=== PATIENT | female | born 1945 | race Caucasian/White ===

== ENCOUNTER 2017-01-20 21:25 | Emergency (ER) | payer MEDICARE, MEDICAID ==
[~2017-01-20] VITALS: Ht 152.4 cm; Wt 47.6 kg
[~2017-01-20 21:25] MED LIST: ASPI-498 PO; BENA40TA PO; GLIP10TA82 PO; HYDR12.56 PO; HYDR7.5T PO; METF-370 PO; NORVASC PO; OMEP20CA74 PO; SIMV20TA90 PO; ZOLP-158 PO
[2017-01-20 21:47] VITALS: BP 125/72
[2017-01-20 22:17] LABS: Basophils # (auto) 0 uL; Basophils % (auto) 0.3 % (0.0-2.0); CONDITION Y; Eosinophils # (auto) 0.1 uL; Eosinophils % (auto) 1.3 % (0.0-7.0); Hematocrit 36.6 % (36.0-46.0); Hemoglobin 12.3 g/dL (12.2-16.2); Lymphocytes # (auto) 1.7 uL; Lymphocytes % (auto) 19.2 % (10.0-50.0); Mean Corpuscular Hgb Conc. 33.5 g/dL (32.0-36.0); Mean Corpuscular Volume 89.3 fL (80.0-100.0); Mean Platelet Volume 8.9 fL (7.4-10.4); Monocytes # (auto) 0.6 uL; Monocytes % (auto) 6.5 % (0.0-12.0); Neutrophils # (auto) 6.5 uL; Neutrophils % (auto) 72.7 % (37.0-80.0); Platelet Count (auto) 260 10^3/uL (140-450); Red Cell Distribution Width 13.8 % (11.6-16.0); White Blood Cell 8.9 10^3/uL (4.4-10.8)
[2017-01-20 22:33] LABS: Partial Thromboplastin Time 29.2 sec (22.64-33.71); Prothrombin Time 10.9 sec (9.37-12.3)
[2017-01-20 22:46] LABS: Albumin 3.8 g/dL (3.4-5.0); Alkaline Phosphatase 61 U/L (45-117); Amylase 40 U/L (25-115); Anion Gap 11 (5-15); Aspartate Aminotransferase 14 U/L (15-37); BUN/Creatinine Ratio 19.2; Bilirubin, Total 0.4 mg/dL (0.2-1.0); Blood Urea Nitrogen 10 mg/dL (7-18); Calcium 8.9 mg/dL (8.5-10.1); Carbon Dioxide 28 mmol/L (21-32); Chloride 96 mmol/L (98-107); GFR African American 149 mL/min; GFR Non-African American 123 mL/min; Glucose 144 mg/dL (74-106); Magnesium 1.9 mg/dL (1.6-2.6); Potassium 3.1 mmol/L (3.5-5.1); Sodium 135 mmol/L (136-145); Total Protein 7.4 g/dL (6.4-8.2)
== END 2017-01-21 02:47 | disposition left against medical advice (07) ==
LOC: ER 21:28
DX: R10.13 Epigastric pain (principal); R11.2 Nausea with vomiting, unspecified; Z53.21 Procedure and treatment not carried out due to patient leaving prior to being seen by health care provider
CPT/HCPCS: 36415; 71010; 80053; 82150; 83690; 83735; 84484; 85025; 85610; 85730

== ENCOUNTER 2017-12-03 09:08 | Emergency (ER) | payer MEDICARE, MEDICAID ==
[~2017-12-03] VITALS: Ht 152.4 cm; Wt 46.7 kg
[2017-12-03 09:55] LABS: Basophils # (auto) 0 uL; Basophils % (auto) 0.7 % (0.0-2.0); Eosinophils # (auto) 0.1 uL; Eosinophils % (auto) 1.6 % (0.0-7.0); Hematocrit 39.4 % (36.0-46.0); Lymphocytes # (auto) 1.1 uL; Lymphocytes % (auto) 22.4 % (10.0-50.0); Mean Corpuscular Hemoglobin 29.8 pg (28.0-32.0); Mean Corpuscular Hgb Conc. 32.9 g/dL (32.0-36.0); Mean Corpuscular Volume 90.6 fL (80.0-100.0); Monocytes # (auto) 0.4 uL; Monocytes % (auto) 7.7 % (0.0-12.0); Neutrophils # (auto) 3.4 uL; Neutrophils % (auto) 67.6 % (37.0-80.0); Nucleated Red Blood Cells % 0.1 %; Platelet Count (auto) 278 10^3/uL (140-450); Red Blood Cells 4.36 10^6/uL (4.0-5.20)
[2017-12-03 10:01] LABS: Urine Bacteria NONE SEEN /hpf (None Seen); Urine Blood Negative /uL (Negative); Urine Specific Gravity 1.003 (1.001-1.035); Urine WBC <1 /hpf (0 - 5)
[2017-12-03 10:11] LABS: Albumin 4.1 g/dL (3.4-5.0); Calcium 9.1 mg/dL (8.5-10.1); Potassium 3.5 mmol/L (3.5-5.1)
[2017-12-03 10:14] LABS: Bilirubin, Total 0.4 mg/dL (0.2-1.0); Total Protein 8.1 g/dL (6.4-8.2)
[2017-12-03 12:37] VITALS: BP 151/68
[2017-12-03] MEDS ORDERED: ALUM & MAG HYDROX-SIMETH LIQ(MAALOX) 30 ML PO ONE (13:00)
[2017-12-03] MEDS ORDERED: DONNATAL 5ml ORAL Elix (BELLADONNA ALK-PHENOBARB) PO ONE (13:00)
[2017-12-03] MEDS ORDERED: LIDOCAINE VISCOUS 2% 15ML UD PO ONE (13:00)
[2017-12-03] MEDS ORDERED: SODIUM CHLORIDE 0.9% 500 ML IV ONE (13:30)
== END 2017-12-03 15:10 | disposition home or self-care (01) ==
LOC: ER 09:10
DX: R19.7 Diarrhea, unspecified (principal); I10 Essential (primary) hypertension; E11.9 Type 2 diabetes mellitus without complications; Z79.82 Long term (current) use of aspirin; Z79.84 Long term (current) use of oral hypoglycemic drugs; Z79.899 Other long term (current) drug therapy
CPT/HCPCS: 36415; 71046; 74176; 80053; 81001; 85025; 93005; 96360

== ENCOUNTER 2019-05-13 21:49 | Emergency (ER) | payer MEDICARE, MEDICAID ==
[~2019-05-13] VITALS: Ht 152.4 cm; Wt 47.6 kg
[~2019-05-13 21:49] MED LIST changes: +GLIP10TA3 PO; -GLIP10TA82 PO
[2019-05-13 22:38] LABS: Basophils # (auto) 0 uL; Basophils % (auto) 0.6 % (0.0-2.0); Eosinophils # (auto) 0.1 uL; Eosinophils % (auto) 1.1 % (0.0-7.0); Hematocrit 36.8 % (36.0-46.0); Hemoglobin 12.2 g/dL (12.2-16.2); Lymphocytes # (auto) 2.1 uL; Lymphocytes % (auto) 24.4 % (10.0-50.0); Mean Corpuscular Hemoglobin 29.5 pg (28.0-32.0); Mean Corpuscular Hgb Conc. 33.2 g/dL (32.0-36.0); Monocytes # (auto) 0.7 uL; Monocytes % (auto) 8.7 % (0.0-12.0); Neutrophils # (auto) 5.6 uL; Neutrophils % (auto) 65.2 % (37.0-80.0); Nucleated Red Blood Cells % 0.1 %; Platelet Count (auto) 330 10^3/uL (140-450); Red Blood Cells 4.14 10^6/uL (4.0-5.20); Red Cell Distribution Width 13.7 % (11.8-14.3); White Blood Cell 8.6 10^3/uL (4.4-10.8)
[2019-05-13 22:48] LABS: Albumin 4.2 g/dL (3.4-5.0); Anion Gap 8 (5-15); Blood Urea Nitrogen 11 mg/dL (7-18); Calcium 8.9 mg/dL (8.5-10.1); Carbon Dioxide 27 mmol/L (21-32); Chloride 99 mmol/L (98-107); Glucose 138 mg/dL (74-106); Potassium 3.6 mmol/L (3.5-5.1); Sodium 134 mmol/L (136-145)
[2019-05-13 22:55] LABS: Alanine Aminotransferase 19 U/L (13-56); Alkaline Phosphatase 77 U/L (45-117); Aspartate Aminotransferase 15 U/L (15-37); BUN/Creatinine Ratio 19.6; Bilirubin, Total 0.3 mg/dL (0.2-1.0); GFR African American 135 mL/min; GFR Non-African American 112 mL/min; Total Protein 7.9 g/dL (6.4-8.2)
[2019-05-13] MEDS ORDERED: ONDANSETRON HCL 4 MG/2 ML VIAL IV ONE (23:15)
[2019-05-13] MEDS ORDERED: MORPHINE SULFATE 4 MG/ML SYR/VIAL IV ONE (23:15)
[2019-05-14 02:02] LABS: Urine WBC None Seen /hpf (0 - 5)
[2019-05-14 02:30] LABS: Urine Bacteria NONE SEEN /hpf (None Seen); Urine Blood Negative /uL (Negative); Urine Mucus FEW (None Seen); Urine Specific Gravity 1.003 (1.001-1.035)
[2019-05-14] MEDS ORDERED: ASPirin 81 mg TAB PO ONE ×2 (02:30)
[2019-05-14] MEDS ORDERED: ACETAMINOPHEN 325 MG TAB PO ONE (02:30)
[2019-05-14] MEDS ORDERED: CLOPIDOGREL 300 MG TAB PO ONE (02:30)
[2019-05-14 04:00] LABS: Basophils # (auto) 0.1 uL; Basophils % (auto) 0.7 % (0.0-2.0); Eosinophils # (auto) 0.2 uL; Eosinophils % (auto) 2.2 % (0.0-7.0); Hematocrit 36.3 % (36.0-46.0); Lymphocytes # (auto) 2.4 uL; Lymphocytes % (auto) 31.8 % (10.0-50.0); Mean Corpuscular Hemoglobin 29.6 pg (28.0-32.0); Mean Corpuscular Hgb Conc. 33.1 g/dL (32.0-36.0); Mean Corpuscular Volume 89.4 fL (80.0-100.0); Monocytes # (auto) 0.7 uL; Monocytes % (auto) 9.2 % (0.0-12.0); Neutrophils # (auto) 4.2 uL; Neutrophils % (auto) 56.1 % (37.0-80.0); Nucleated Red Blood Cells % 0.1 %; Platelet Count (auto) 311 10^3/uL (140-450); Red Blood Cells 4.06 10^6/uL (4.0-5.20); White Blood Cell 7.4 10^3/uL (4.4-10.8)
[2019-05-14 04:21] LABS: INR 1.03 (0.9-1.15); Partial Thromboplastin Time 29.2 sec (23.64-32.05)
[2019-05-14] MEDS ORDERED: IOHEXOL 350 MG/ML 100ML IJ ONE (04:50)
[2019-05-14 06:47] VITALS: BP 110/56
[2019-05-14] MEDS ORDERED: HYDROcodone-ACET 5/325MG TAB PO ONE ×2 (07:45)
[2019-05-14] MEDS ORDERED: NITROGLYCERIN 0.4 MG SL TAB SL ONE (10:00)
== END 2019-05-14 08:38 | disposition home or self-care (01) ==
LOC: ER 21:51
DX: K21.9 Gastro-esophageal reflux disease without esophagitis (principal); K44.9 Diaphragmatic hernia without obstruction or gangrene; R51 Headache; E11.9 Type 2 diabetes mellitus without complications; I10 Essential (primary) hypertension; Z79.899 Other long term (current) drug therapy; Z79.82 Long term (current) use of aspirin
CPT/HCPCS: 36415; 70450; 71045; 71275; 80053; 81001; 82962; 83735; 83880; 84443; 84484; 85025; 85379; 85610; 85730; 93005; 96374; 96375; 99284; J2270; J2405; Q9967

== ENCOUNTER → 2019-09-30 | Outpatient (CLI) | payer MEDICARE, MEDICAID ==
[~2019-09-30] VITALS: Ht 152.4 cm; Wt 47.6 kg
[~2019-09-30] MED LIST changes: +ENAL20TA8 PO; +HYDR-4296 PO; +HYDR-531 PO; +HYDR25TA4 PO; +POTA1TAB61 PO; +SITA100T7 PO
[2019-09-30 11:56] LABS: Basophils # (auto) 0 10 ^3/uL (0-0.2); Basophils % (auto) 0.7 % (0.0-2.0); Eosinophils # (auto) 0.1 10 ^3/uL (0-0.8); Hematocrit 36.1 % (36.0-46.0); Hemoglobin 11.9 g/dL (12.2-16.2); Lymphocytes # (auto) 1.1 10 ^3/uL (0.4-5.4); Lymphocytes % (auto) 17.2 % (10.0-50.0); Mean Corpuscular Hemoglobin 28.9 pg (28.0-32.0); Mean Corpuscular Hgb Conc. 33.1 g/dL (32.0-36.0); Mean Corpuscular Volume 87.3 fL (80.0-100.0); Monocytes # (auto) 0.4 10 ^3/uL (0-1.3); Monocytes % (auto) 6.2 % (0.0-12.0); Neutrophils # (auto) 4.8 10 ^3/uL (1.6-8.6); Neutrophils % (auto) 73.9 % (37.0-80.0); Nucleated Red Blood Cells % 0.1 %; Platelet Count (auto) 329 10^3/uL (140-450); Red Blood Cells 4.14 10^6/uL (4.0-5.20); Red Cell Distribution Width 14.8 % (11.8-14.3); White Blood Cell 6.6 10^3/uL (4.4-10.8)
[2019-09-30 12:14] LABS: Urine Bacteria NONE SEEN /hpf (None Seen); Urine Blood Negative /uL (Negative); Urine Specific Gravity 1.011 (1.001-1.035); Urine WBC 1 /hpf (0 - 5)
[2019-09-30 12:16] LABS: INR 1.06 (0.9-1.15); Partial Thromboplastin Time 27.8 sec (23.64-32.05)
[2019-09-30 12:26] LABS: Albumin 3.8 g/dL (3.4-5.0); Calcium 9.6 mg/dL (8.5-10.1); Potassium 3.6 mmol/L (3.5-5.1)
[2019-09-30 12:30] LABS: Bilirubin, Total 0.3 mg/dL (0.2-1.0)
== END | disposition home or self-care (01) ==
LOC: SUR 11:31 → EDSTATUS 10-05 09:15
PROVIDERS: ATTEND Podiatrist Foot & Ankle Surgery
DX: M20.41 Other hammer toe(s) (acquired), right foot (principal); Z98.890 Other specified postprocedural states
CPT/HCPCS: 36415; 80053; 81001; 85025; 85610; 85730

== ENCOUNTER 2019-12-21 05:41 | Day surgery (SDC) | payer MEDICARE, MEDICAID ==
[2019-12-20 11:31] LABS: Basophils # (auto) 0 10 ^3/uL (0-0.2); Basophils % (auto) 0.7 % (0.0-2.0); Eosinophils # (auto) 0.1 10 ^3/uL (0-0.8); Eosinophils % (auto) 2.6 % (0.0-7.0); Hematocrit 36.6 % (36.0-46.0); Hemoglobin 11.8 g/dL (12.2-16.2); Lymphocytes # (auto) 1.3 10 ^3/uL (0.4-5.4); Lymphocytes % (auto) 26.4 % (10.0-50.0); Mean Corpuscular Hemoglobin 28.2 pg (28.0-32.0); Mean Corpuscular Hgb Conc. 32.2 g/dL (32.0-36.0); Mean Corpuscular Volume 87.5 fL (80.0-100.0); Monocytes # (auto) 0.3 10 ^3/uL (0-1.3); Monocytes % (auto) 6.8 % (0.0-12.0); Neutrophils % (auto) 63.5 % (37.0-80.0); Nucleated Red Blood Cells % 0.1 %; Platelet Count (auto) 273 10^3/uL (140-450); Red Blood Cells 4.19 10^6/uL (4.0-5.20); Red Cell Distribution Width 16.4 % (11.8-14.3); White Blood Cell 4.8 10^3/uL (4.4-10.8)
[2019-12-20 11:41] LABS: Urine Bacteria NONE SEEN /hpf (None Seen); Urine Blood Negative /uL (Negative); Urine Specific Gravity 1.005 (1.001-1.035); Urine WBC <1 /hpf (0 - 5)
[2019-12-20 11:56] LABS: Albumin 3.8 g/dL (3.4-5.0); Calcium 9.1 mg/dL (8.5-10.1); Potassium 3.9 mmol/L (3.5-5.1)
[2019-12-20 11:58] LABS: INR 1.08 (0.9-1.15)
[2019-12-20 11:59] LABS: BUN/Creatinine Ratio 18.5; Bilirubin, Total 0.4 mg/dL (0.2-1.0); Total Protein 7.7 g/dL (6.4-8.2)
[~2019-12-21] VITALS: Ht 152.4 cm; Wt 47.6 kg
[~2019-12-21 05:41] MED LIST changes: -BENA40TA PO; +ENAL20TA PO; -ENAL20TA8 PO; -HYDR12.56 PO; -HYDR7.5T PO; -OMEP20CA74 PO; -SIMV20TA90 PO; -ZOLP-158 PO
[2019-12-21] MEDS ORDERED: ONDANSETRON HCL 4 MG/2 ML VIAL ONE (07:02)
[2019-12-21] MEDS ORDERED: MIDAZOLAM HCL 1MG/1ML-2 ML VIAL ONE (07:02)
[2019-12-21] MEDS ORDERED: fentaNYL CITRATE 100 MCG/2 ML VL ONE (07:02)
[2019-12-21] MEDS ORDERED: GLYCOPYRROLATE 0.2 MG/ML 1ML VIAL ONE (07:02)
[2019-12-21] MEDS ORDERED: PROPOFOL 10 MG/ML 20 ML IV ONE (07:02)
[2019-12-21] MEDS ORDERED: KETOROLAC TROMETH 30 MG/ML 1ML VIAL ONE (07:02)
[2019-12-21] MEDS ORDERED: DexAMETHasone SOD PHOS 10MG/1ML VIAL INJ ONE (07:02)
[2019-12-21] MEDS ORDERED: KETAMINE HCL 10 ML ONE (07:02)
[2019-12-21] MEDS ORDERED: ceFAZolin 1GM/50ML 50 ML IV ONE (07:02)
[2019-12-21] MEDS ORDERED: HYDROmorphone HCL 2 MG/ML VL ONE (07:30)
[2019-12-21] MEDS ORDERED: ROPIVACAINE 0.5% (5MG/ML) 20ML AMPULE IJ ONE (07:36)
[2019-12-21] MEDS ORDERED: ONDANSETRON HCL 4 MG/2 ML VIAL IV PRN (08:45)
[2019-12-21] MEDS ORDERED: ACCU-CHEK COMFORT CURVE STRIP VI ONE (08:45)
[2019-12-21] MEDS ORDERED: HYDROmorphone HCL 2 MG/ML VL IV PRN (08:45)
[2019-12-21 10:01] VITALS: BP 134/51
== END 2019-12-21 10:15 | disposition home or self-care (01) ==
LOC: SUR 05:41
PROVIDERS: ATTEND Podiatrist Foot & Ankle Surgery
DX: M20.41 Other hammer toe(s) (acquired), right foot (principal); M21.622 Bunionette of left foot; M21.621 Bunionette of right foot; I10 Essential (primary) hypertension; E11.9 Type 2 diabetes mellitus without complications; G89.29 Other chronic pain; M19.90 Unspecified osteoarthritis, unspecified site; Z79.899 Other long term (current) drug therapy; Z98.890 Other specified postprocedural states; Z11.59 Encounter for screening for other viral diseases
CPT/HCPCS: 28285; 28308; 36415; 73620; 80053; 81001; 82962; 85025; 85610; 85730; 88304; 88311; C1713; C1769; J0690; J1100; J1170; J1885; J2250; J2405; J2704; J2795; J3010; U0003

== ENCOUNTER 2020-03-07 06:27 | Day surgery (SDC) | payer MEDICARE, MEDICAID ==
[2020-03-02 15:33] LABS: Basophils # (auto) 0 10 ^3/uL (0-0.2); Basophils % (auto) 0.6 % (0.0-2.0); Eosinophils # (auto) 0.2 10 ^3/uL (0-0.8); Eosinophils % (auto) 2.4 % (0.0-7.0); Hematocrit 38.2 % (36.0-46.0); Hemoglobin 12.2 g/dL (12.2-16.2); Lymphocytes # (auto) 1.7 10 ^3/uL (0.4-5.4); Lymphocytes % (auto) 24.5 % (10.0-50.0); Mean Corpuscular Hgb Conc. 31.9 g/dL (32.0-36.0); Mean Corpuscular Volume 90.7 fL (80.0-100.0); Monocytes # (auto) 0.7 10 ^3/uL (0-1.3); Monocytes % (auto) 9.8 % (0.0-12.0); Neutrophils # (auto) 4.4 10 ^3/uL (1.6-8.6); Neutrophils % (auto) 62.7 % (37.0-80.0); Nucleated Red Blood Cells % 0.1 %; Platelet Count (auto) 374 10^3/uL (140-450); Red Blood Cells 4.21 10^6/uL (4.0-5.20); Red Cell Distribution Width 15.8 % (11.8-14.3)
[2020-03-02 15:51] LABS: Urine Bacteria NONE SEEN /hpf (None Seen); Urine Blood Negative /uL (Negative); Urine Specific Gravity 1.009 (1.001-1.035); Urine WBC 1 /hpf (0 - 5)
[2020-03-02 16:14] LABS: Albumin 3.8 g/dL (3.4-5.0); Potassium 3.8 mmol/L (3.5-5.1)
[2020-03-02 16:19] LABS: BUN/Creatinine Ratio 14.8; Bilirubin, Total 0.2 mg/dL (0.2-1.0); Total Protein 7.5 g/dL (6.4-8.2)
[2020-03-02 16:22] LABS: INR 1.12 (0.9-1.15); Partial Thromboplastin Time 26.2 sec (23.0-31.2)
[~2020-03-07] VITALS: Ht 152.4 cm; Wt 47.6 kg
[~2020-03-07 06:27] MED LIST changes: -ENAL20TA PO; +ENAL20TA8 PO
[2020-03-07] MEDS ORDERED: DEXTROSE (50%) 50ML SYRG IV ONE (07:59)
[2020-03-07] MEDS ORDERED: DEXTROSE 50% SYRINGE 50 ML IV ONE (08:03)
[2020-03-07] MEDS ORDERED: ceFAZolin 1GM/50ML 50 ML IV ONE (08:03)
[2020-03-07] MEDS ORDERED: MIDAZOLAM HCL 1MG/1ML-2 ML VIAL ONE (08:19)
[2020-03-07] MEDS ORDERED: PROPOFOL 10 MG/ML 20 ML IV ONE (08:19)
[2020-03-07] MEDS ORDERED: LIDOCAINE 2% (LOCAL ANESTH.) PF 5ml SDV ONE (08:19)
[2020-03-07] MEDS ORDERED: GLYCOPYRROLATE 0.2 MG/ML 1ML VIAL ONE (08:19)
[2020-03-07] MEDS ORDERED: ROPIVACAINE 0.5% (5MG/ML) 20ML AMPULE IJ ONE (08:22)
[2020-03-07] MEDS ORDERED: ONDANSETRON HCL 4 MG/2 ML VIAL IV ONE (08:37)
[2020-03-07] MEDS ORDERED: fentaNYL CITRATE 100 MCG/2 ML VL ONE (08:47)
[2020-03-07] MEDS ORDERED: HYDROmorphone HCL 2 MG/ML VL IV PRN (09:15)
[2020-03-07] MEDS ORDERED: ACCU-CHEK COMFORT CURVE STRIP VI ONE (09:15)
[2020-03-07] MEDS ORDERED: ONDANSETRON HCL 4 MG/2 ML VIAL IV PRN (09:15)
[2020-03-07 09:40] VITALS: BP 138/53
== END 2020-03-07 09:40 | disposition home or self-care (01) ==
LOC: SUR 06:27
PROVIDERS: ATTEND Podiatrist Foot & Ankle Surgery
DX: M79.671 Pain in right foot (principal); D23.71 Other benign neoplasm of skin of right lower limb, including hip; I10 Essential (primary) hypertension; E11.9 Type 2 diabetes mellitus without complications; M19.90 Unspecified osteoarthritis, unspecified site; Z79.899 Other long term (current) drug therapy; Z98.890 Other specified postprocedural states; Z11.59 Encounter for screening for other viral diseases
CPT/HCPCS: 13131; 20680; 36415; 73020; 80053; 81001; 82962; 85025; 85610; 85730; 88300; 88305; J0690; J1170; J2001; J2250; J2405; J2704; J2795; J3010; J7030; J7042; U0001

== ENCOUNTER 2020-06-22 14:02 | Emergency (ER) | payer MEDICARE, MEDICAID ==
[~2020-06-22] VITALS: Ht 152.4 cm; Wt 47.6 kg
[2020-06-22 14:15] VITALS: BP 163/56
[2020-06-22] MEDS ORDERED: traMADol HCL 50 MG TAB PO ONE (16:00)
== END 2020-06-22 16:07 | disposition home or self-care (01) ==
LOC: ER 14:02
DX: M43.12 Spondylolisthesis, cervical region (principal); M19.012 Primary osteoarthritis, left shoulder; M54.12 Radiculopathy, cervical region; E11.9 Type 2 diabetes mellitus without complications; I10 Essential (primary) hypertension
CPT/HCPCS: 72040; 73030; 93005

== ENCOUNTER 2021-01-05 18:31 | Emergency (ER) | payer MEDICARE, MEDICAID ==
[~2021-01-05] VITALS: Ht 152.4 cm; Wt 47.6 kg
[2021-01-05 18:34] VITALS: BP 164/67
[2021-01-05 19:16] LABS: Basophils # (auto) 0 10 ^3/uL (0-0.2); Basophils % (auto) 0.7 % (0.0-2.0); Eosinophils # (auto) 0.3 10 ^3/uL (0-0.8); Eosinophils % (auto) 4.6 % (0.0-7.0); Hematocrit 35.8 % (36.0-46.0); Hemoglobin 12.4 g/dL (12.2-16.2); Lymphocytes # (auto) 1.9 10 ^3/uL (0.4-5.4); Lymphocytes % (auto) 29.1 % (10.0-50.0); Mean Corpuscular Hemoglobin 31.3 pg (28.0-32.0); Mean Corpuscular Hgb Conc. 34.7 g/dL (32.0-36.0); Mean Corpuscular Volume 90.2 fL (80.0-100.0); Monocytes # (auto) 0.5 10 ^3/uL (0-1.3); Monocytes % (auto) 7.2 % (0.0-12.0); Neutrophils # (auto) 3.7 10 ^3/uL (1.6-8.6); Neutrophils % (auto) 58.4 % (37.0-80.0); Nucleated Red Blood Cells % 0.1 %; Red Blood Cells 3.97 10^6/uL (4.0-5.20); Red Cell Distribution Width 14.4 % (11.8-14.3); White Blood Cell 6.4 10^3/uL (4.4-10.8)
[2021-01-05 19:33] LABS: Alanine Aminotransferase 31 U/L (13-56); Albumin 3.7 g/dL (3.4-5.0); Anion Gap 7 (5-15); Aspartate Aminotransferase 30 U/L (15-37); BUN/Creatinine Ratio 18.9; Blood Urea Nitrogen 10 mg/dL (7-18); Calcium 8.7 mg/dL (8.5-10.1); Carbon Dioxide 28 mmol/L (21-32); Chloride 103 mmol/L (98-107); GFR African American 144 mL/min; GFR Non-African American 119 mL/min; Glucose 172 mg/dL (74-106); Magnesium 1.9 mg/dL (1.6-2.6); Potassium 3.5 mmol/L (3.5-5.1); Sodium 138 mmol/L (136-145)
[2021-01-05 19:38] LABS: Alkaline Phosphatase 50 U/L (45-117); Bilirubin, Total 0.2 mg/dL (0.2-1.0); Total Protein 7.3 g/dL (6.4-8.2)
== END 2021-01-05 20:12 | disposition left against medical advice (07) ==
LOC: ER 18:31
DX: M54.12 Radiculopathy, cervical region (principal); R07.89 Other chest pain; I10 Essential (primary) hypertension; E11.9 Type 2 diabetes mellitus without complications; Z79.82 Long term (current) use of aspirin; Z79.84 Long term (current) use of oral hypoglycemic drugs; Z79.899 Other long term (current) drug therapy
CPT/HCPCS: 36415; 71045; 72125; 80053; 83735; 84484; 85025; 93005